=== PATIENT | male | born 1945 | race Caucasian/White ===

== ENCOUNTER → 2016-07-20 | Outpatient (CLI) | payer MEDICARE, BC ==
[~2016-07-20] MED LIST: ASPIRIN81 MG PO; COREG12.5 MG PO; GLUCOPHAGE1000 MG PO; HUMULIN 70100 UNIT/1 SUBCUT; LIPITOR80 MG PO; NEURONTIN600 MG PO; PLAVIX75 MG PO; PRINIVIL2.5 MG PO
== END | disposition short-term general hospital (02) ==
LOC: CLCARD 10:42
DX: Z48.812 Encounter for surgical aftercare following surgery on the circulatory system (principal); I50.22 Chronic systolic (congestive) heart failure; I25.10 Atherosclerotic heart disease of native coronary artery without angina pectoris; I25.5 Ischemic cardiomyopathy; E11.9 Type 2 diabetes mellitus without complications; E78.5 Hyperlipidemia, unspecified; I27.2 Other secondary pulmonary hypertension; I73.9 Peripheral vascular disease, unspecified; Z95.810 Presence of automatic (implantable) cardiac defibrillator